=== PATIENT | male | born 1940 | race Caucasian/White ===

== ENCOUNTER 2020-08-01 16:21 | Inpatient (IN) | payer MEDICARE, OTHER ==
[2020-08-01] MEDS ORDERED: Sodium Chloride 0.9% 10 ML Syringe FLUSH PRN (16:50)
--- NOTE | 2020-08-01 17:27 | EDM.PDOC ---
<Marcio Ambrosio - Last Filed: 08/01/20 19:04> ED HPI GENERAL MEDICAL PROBLEM - General Chief Complaint: Abdominal Pain Stated Complaint: SENT FROM [place] Time Seen by Provider: 08/01/20 16:35 Source of Information: Reports: Patient, Family History Limitations: Reports: No Limitations - History of Present Illness INITIAL COMMENTS - FREE TEXT/NARRATIVE: The patient presents with upper abdominal pain. He says this started 1 hour after eating a BLT. He said this has happened before but the pain was more intense today. He got diaphoretic from the pain. He has no chest pain or shortness of breath. The pain was 8/10 but it went down to about a 5/10 after taking some tums and belching. He still has his gallbladder and appendix. He has no nausea or vomiting. He has no diarrhea or dysuria. He has no fever, chills or cough. He has coronary artery disease. He had an AR with stents in 2005. This all started at 1pm today. Onset: Sudden Duration: Hour(s): Location: Reports: Abdomen Quality: Reports: Sharp Severity: Moderate Improves with: Reports: None Worsens with: Reports: None Associated Symptoms: Reports: No Other Symptoms Upper Abdomen Pain Score (Numeric/FACES): 5 - Related Data Allergies Allergy/AdvReac Type Severity Reaction Status Date / Time No Known Allergies Allergy Verified 08/01/20 16:34 Home Meds: Home Meds Aspirin [Halfprin] 81 mg PO DAILY 08/01/20 [History] Clopidogrel Bisulfate [Clopidogrel] 75 mg PO DAILY 08/01/20 [History] Levothyroxine 75 mcg PO DAILY 08/01/20 [History] Losartan Potassium 50 mg PO DAILY 08/01/20 [History] Metoprolol Succinate [Toprol Xl] 25 mg PO DAILY 08/01/20 [History] Pantoprazole Sodium [Protonix] 20 mg PO DAILY 08/01/20 [History] Rosuvastatin Calcium 40 mg PO DAILY 08/01/20 [History] Past Medical History HEENT History: Reports: Cataract, Impaired Vision Other HEENT History: wears eyeglasses. Cardiovascular History: Reports: CAD, High Cholesterol, Hypertension, Stents Gastrointestinal History: Reports: GERD, Helicobacter Pylori Musculoskeletal History: Reports: Osteoarthritis Endocrine/Metabolic History: Reports: Hypothyroidism - Infectious Disease History Infectious Disease History: Reports: Chicken Pox, Measles, Mumps, Shingles - Past Surgical History HEENT Surgical History: Reports: Cataract Surgery Cardiovascular Surgical History: Reports: Coronary Artery Stent GI Surgical History: Reports: Colonoscopy, EGD Social & Family History - Tobacco Use Tobacco Use Status *Q: Never Tobacco User Second Hand Smoke Exposure: No - Caffeine Use Caffeine Use: Reports: Coffee - Recreational Drug Use Recreational Drug Use: No ED ROS GENERAL - Review of Systems Review Of Systems: See Below Constitutional: Reports: No Symptoms HEENT: Reports: No Symptoms Respiratory: Reports: No Symptoms Cardiovascular: Reports: No Symptoms Endocrine: Reports: No Symptoms GI/Abdominal: Reports: Abdominal Pain. Denies: Nausea, Vomiting : Reports: No Symptoms Musculoskeletal: Reports: No Symptoms ED EXAM, GI/ABD - Physical Exam Exam: See Below Exam Limited By: No Limitations General Appearance: Alert, No Apparent Distress Ears: Normal External Exam Nose: Normal Inspection Head: Atraumatic, Normocephalic Neck: Normal Inspection Respiratory/Chest: No Respiratory Distress, Lungs Clear, Normal Breath Sounds Cardiovascular: Regular Rate, Rhythm, No Edema, No Murmur GI/Abdominal Exam: Soft, No Organomegaly, No Mass, Tender (Moderate tenderness to the right upper abdomen) #1 Interpretation EKG Date: 08/01/20 Time: 16:34 Rhythm: NSR Rate (Beats/Min): 62 [place]: Normal P-Wave: Present QRS: Normal ST-T: Normal QT: Normal Course - Re-Assessments/Exams Free Text/Narrative Re-Assessment/Exam: 08/01/20 17:27 I ordered an IV saline lock, EKG, CXR, labs and an US of his gallbladder. 08/01/20 18:17 His EKG shows a NSR with no acute changes. His CXR looks good. His WBC was elevated at 12.98. His CMP is negative. His CK is normal at 140. His CKMB is normal at 2.6. His troponin is negative. His CRP is normal. His lipase is elevated at 22,435. 08/01/20 19:04 His US shows limited examination. A repeat study following more prolonged fasting could be considered for more optimal gallbladder assessment. The patient is feeling good. I would like to admit him to the hospital for pancreatitis and for a CT of his abdomen. 08/01/20 19:06 He did not want to be admitted but he did agree to the CT of his abdomen and pelvis. Departure - Departure Disposition: Admitted As Inpatient 68 Clinical Impression: Acute pancreatitis Qualifiers: Pancreatitis type: unspecified pancreatitis type Acute pancreatitis complication: no infection or necrosis Qualified Code(s): K85.90 - Acute pancreatitis without necrosis or infection, unspecified - Discharge Information Instructions: Acute Pancreatitis, Fiyr-ek-Info Referrals: Terell Gee MD [Primary Care Provider] - Forms: ED Department Discharge Sepsis Event Note (ED) - Evaluation Sepsis Screening Result: No Definite Risk <Mio Norman - Last Filed: 08/01/20 21:04> Course - Vital Signs Last Recorded V/S: Last Vital Signs Temp 36.3 C 08/01/20 16:25 Pulse 62 08/01/20 16:25 Resp 19 08/01/20 16:25 BP 179/60 H 08/01/20 16:25 Pulse Ox 100 08/01/20 16:25 - Orders/Labs/Meds Orders: Active Orders 24 hr Category Date Time Status Admission Status [Patient Status] [ADT] Routine ADT 08/01/20 20:43 Active Cardiac Monitoring [RC] . DIRECTED Care 08/01/20 16:50 Active EKG Documentation Completion [RC] STAT Care 08/01/20 16:51 Active Peripheral IV Care [RC] . DIRECTED Care 08/01/20 16:51 Active Abdomen Ltd [US] Stat Exams 08/01/20 16:52 Taken Abdomen Pelvis w Cont [CT] Stat Exams 08/01/20 18:47 Taken Chest 1V Frontal [CR] Stat Exams 08/01/20 16:51 Taken Dextrose 5%-0.9% NaCl with KCl [D5 NS with 20 mEq KCl] Med 08/01/20 20:45 Active 1,000 ml IV ASDIRECTED Sodium Chloride 0.9% [Saline Flush] Med 08/01/20 16:50 Active 10 ml FLUSH ASDIRECTED PRN Sodium Chloride 0.9% [Saline Flush] Med 08/01/20 19:45 Active 10 ml FLUSH BOLUS Peripheral IV Insertion Adult [OM.PC] Stat Oth 08/01/20 16:50 Ordered Medication Orders Potassium Chloride/Dextrose/Sod Cl (D5 Ns With 20 Meq Kcl) 1,000 mls @ 125 mls/hr IV ASDIRECTED DARLENE Sodium Chloride (Saline Flush) 10 ml FLUSH ASDIRECTED PRN PRN Reason: Keep Vein Open Last Admin: 08/01/20 16:55 Dose: 10 ml Documented by: MEGHA Sodium Chloride (Saline Flush) 10 ml FLUSH BOLUS DARLENE Last Admin: 08/01/20 19:45 Dose: 10 ml Documented by: MERRY Labs: Laboratory Tests 08/01/20 08/01/20 08/01/20 Range/Units 17:05 17:05 17:05 WBC 12.98 H (4.23-9.07) K/mm3 RBC 5.13 (4.63-6.08) M/mm3 Hgb 15.5 (13.7-17.5) gm/dl Hct 47.2 (40.1-51.0) % MCV 92.0 (79.0-92.2) fl MCH 30.2 (25.7-32.2) pg MCHC 32.8 (32.2-35.5) g/dl RDW Std Deviation 47.4 H (35.1-43.9) fL Plt Count 211 (163-337) K/mm3 MPV 9.9 (9.4-12.3) fl Neut % (Auto) 73.5 H (34.0-67.9) % Lymph % (Auto) 15.6 L (21.8-53.1) % Rush % (Auto) 10.0 (5.3-12.2) % Eos % (Auto) 0.5 L (0.8-7.0) Baso % (Auto) 0.2 (0.1-1.2) % Neut # (Auto) 9.54 H (1.78-5.38) K/mm3 Lymph # (Auto) 2.03 (1.32-3.57) K/mm3 Rush # (Auto) 1.30 H (0.30-0.82) K/mm3 Eos # (Auto) 0.06 (0.04-0.54) K/mm3 Baso # (Auto) 0.03 (0.01-0.08) K/mm3 Sodium 144 (136-145) mEq/L Potassium 4.4 (3.5-5.1) mEq/L Chloride 108 H (98-107) mEq/L Carbon Dioxide 29 (21-32) mEq/L Anion Gap 11.4 (5-15) BUN 20 H (7-18) mg/dL Creatinine 1.2 (0.7-1.3) mg/dL Est Cr Clr Drug Dosing 43.17 mL/min Estimated GFR (MDRD) 59 (>60) mL/min BUN/Creatinine Ratio 16.7 (14-18) Glucose 97 (83-115) mg/dL Calcium 9.0 (8.5-10.1) mg/dL Total Bilirubin 0.7 (0.2-1.0) mg/dL GGT 25 (15-85) U/L AST 24 (15-37) U/L ALT 34 (16-63) U/L Alkaline Phosphatase 68 (46-116) U/L Creatine Kinase 140 (39-308) U/L CK-MB (CK-2) 2.6 (0-3.6) ng/ml Troponin I < 0.017 (0.00-0.056) ng/mL C-Reactive Protein <0.2 (<1.0) mg/dL Total Protein 6.7 (6.4-8.2) g/dl Albumin 3.5 (3.4-5.0) g/dl Globulin 3.2 gm/dL Albumin/Globulin Ratio 1.1 (1-2) Lipase 98065 H (73-393) U/L Urine Color (Yellow) Urine Appearance (Clear) Urine pH (5.0-8.0) Ur Specific [place] (1.005-1.030) Urine Protein (Negative) Urine Glucose (UA) (Negative) Urine Ketones (Negative) Urine Occult Blood (Negative) Urine Nitrite (Negative) Urine Bilirubin (Negative) Urine Urobilinogen (0.2-1.0) Ur Leukocyte Esterase (Negative) Urine RBC (0-5) /hpf Urine WBC (0-5) /hpf Ur Squamous Epith Cells (0-5) /hpf Urine Bacteria (FEW) /hpf Urine Mucus (FEW) /hpf 08/01/20 Range/Units 19:55 WBC (4.23-9.07) K/mm3 RBC (4.63-6.08) M/mm3 Hgb (13.7-17.5) gm/dl Hct (40.1-51.0) % MCV (79.0-92.2) fl MCH (25.7-32.2) pg MCHC (32.2-35.5) g/dl RDW Std Deviation (35.1-43.9) fL Plt Count (163-337) K/mm3 MPV (9.4-12.3) fl Neut % (Auto) (34.0-67.9) % Lymph % (Auto) (21.8-53.1) % Rush % (Auto) (5.3-12.2) % Eos % (Auto) (0.8-7.0) Baso % (Auto) (0.1-1.2) % Neut # (Auto) (1.78-5.38) K/mm3 Lymph # (Auto) (1.32-3.57) K/mm3 Rush # (Auto) (0.30-0.82) K/mm3 Eos # (Auto) (0.04-0.54) K/mm3 Baso # (Auto) (0.01-0.08) K/mm3 Sodium (136-145) mEq/L Potassium (3.5-5.1) mEq/L Chloride (98-107) mEq/L Carbon Dioxide (21-32) mEq/L Anion Gap (5-15) BUN (7-18) mg/dL Creatinine (0.7-1.3) mg/dL Est Cr Clr Drug Dosing mL/min Estimated GFR (MDRD) (>60) mL/min BUN/Creatinine Ratio (14-18) Glucose (83-115) mg/dL Calcium (8.5-10.1) mg/dL Total Bilirubin (0.2-1.0) mg/dL GGT (15-85) U/L AST (15-37) U/L ALT (16-63) U/L Alkaline Phosphatase (46-116) U/L Creatine Kinase (39-308) U/L CK-MB (CK-2) (0-3.6) ng/ml Troponin I (0.00-0.056) ng/mL C-Reactive Protein (<1.0) mg/dL Total Protein (6.4-8.2) g/dl Albumin (3.4-5.0) g/dl Globulin gm/dL Albumin/Globulin Ratio (1-2) Lipase (73-393) U/L Urine Color Yellow (Yellow) Urine Appearance Clear (Clear) Urine pH 6.0 (5.0-8.0) Ur Specific [place] 1.020 (1.005-1.030) Urine Protein Negative (Negative) Urine Glucose (UA) Negative (Negative) Urine Ketones Negative (Negative) Urine Occult Blood Negative (Negative) Urine Nitrite Negative (Negative) Urine Bilirubin Negative (Negative) Urine Urobilinogen 0.2 (0.2-1.0) Ur Leukocyte Esterase Negative (Negative) Urine RBC 0-5 (0-5) /hpf Urine WBC 0-5 (0-5) /hpf Ur Squamous Epith Cells 0-5 (0-5) /hpf Urine Bacteria Few (FEW) /hpf Urine Mucus Not seen (FEW) /hpf Meds: Medications Generic Name Dose Route Start Last Admin Trade Name Freq PRN Reason Stop Dose Admin Potassium Chloride/Dextrose/Sod Cl 1,000 mls @ 125 mls/hr 08/01/20 20:45 D5 Ns With 20 Meq Kcl IV ASDIRECTED DARLENE Sodium Chloride 10 ml 08/01/20 16:50 08/01/20 16:55 Saline Flush FLUSH 10 ml ASDIRECTED PRN Administration Keep Vein Open Sodium Chloride 10 ml 08/01/20 19:45 08/01/20 19:45 Saline Flush FLUSH 10 ml BOLUS DARLENE Administration Discontinued Medications Generic Name Dose Route Start Last Admin Trade Name Freq PRN Reason Stop Dose Admin Clopidogrel Bisulfate 75 mg 08/01/20 20:41 Plavix PO 08/01/20 20:42 ONETIME ONE Iopamidol 100 ml 08/01/20 19:43 08/01/20 19:45 Isovue-300 (61%) IVPUSH 08/01/20 19:44 100 ml ONETIME ONE Administration Levothyroxine Sodium 75 mcg 08/01/20 20:42 Levothyroxine PO 08/01/20 20:43 ONETIME ONE Losartan Potassium 50 mg 08/01/20 20:41 Cozaar PO 08/01/20 20:42 ONETIME ONE Metoprolol Succinate 25 mg 08/01/20 20:41 Toprol Xl PO 08/01/20 20:42 ONETIME ONE - Re-Assessments/Exams Free Text/Narrative Re-Assessment/Exam: 08/01/20 19:29 care has been assumed from Dr. Ambrosio and as it is change of shift. The patient presents with diffuse recurrent upper abdominal pain and identified by labs to have an acute pancreatitis with an elevated lipase of 22,435. Patient does not wish to stay in the hospital. He however is agreed to having CT of the abdomen with IV contrast only so as not to obscure the pancreas with oral contrast to rule out a underlying cancer in the head of the pancreas. There is some suggestion that he has been having recurrent similar pain for several months. A GGT has also been ordered. On review of his med list medications Protonix and rosuvastatin have both been identified to cause potential pancreatitis 08/01/20 19:42 serum GGT is only 25 and therefore there is no laboratory signs of biliary tree obstruction. Dr. Ambrosio and has mentioned that he did speak with Dr. Terell Gee the patient's [id number] and I believe Dr. Liz in turn spoke to the patient and advised that he should probably be admitted to the hospital. 08/01/20 20:35 I have spoken to the patient at length about the results of his CT scan of the abdomen which shows evidence of acute pancreatitis with inflammatory change around particularily the head of the pancreas. No definitive mass in the head of the pancreas could be identified. The gallbladder is contracted and is does not show any evidence of obvious calcified stones. Both kidneys appear to be within normal limits. Adrenal glands are normal. Spleen appears to be normal. No retroperitoneal adenopathy noted. Diffuse atherosclerotic changes appreciated throughout the abdominal aorta without aneurysm development. He does have bilateral small fat-containing inguinal hernias. Prostate appears to be within normal limits. Urinary bladder appears to be normal. There is a large amount of stool throughout the colon. I would suggest he be placed on stool softeners or MiraLAX powder at least daily while in hospital. At present he does not want any pain medications. He is willing to come into the hospital for IV fluid management. I will speak with on-call hospitalist Dr. Mahajan in this regard. He has been on both his Protonix and rosuvastatin for greater than 2 years. It is unlikely that medication is causing his current symptom complex. Since it is so sporadic it still strongly suggest the gallbladder is the culprit and perhaps sludge is obstructing the common bile duct to cause acute pancreatitis. He is going to need MRI or ERCP once the pancreatic inflammation settles a bit to make sure there is no obstruction of the true pancreatic duct. 08/01/20 20:[address] with [address] Mahajan and he is willing to admit the patient to med surgery floor. Patient takes all of his medications at the same time in the evening other than rosuvastatin which he takes at bedtime. I therefore ordered Plavix 75 mg p.o. with levothyroxine 75 mcg p.o. with losartan 50 mg p.o. and metoprolol succinate 25 mg p.o. at this time. IV fluids will be D5 normal saline with 20 mEq of KCl per liter to run at 125 mils per hour. Departure - Departure Time of Disposition: 21:03 Condition: Fair - Discharge Information *PRESCRIPTION DRUG MONITORING PROGRAM REVIEWED*: Not Applicable *COPY OF PRESCRIPTION DRUG MONITORING REPORT IN PATIENT EHSAN: Not Applicable Sepsis Event Note (ED) - Focused Exam Vital Signs: Vital Signs Temp Pulse Resp BP Pulse Ox 08/01/20 16:25 36.3 C 62 19 179/60 H 100 - My Orders Last 24 Hours: My Active Orders 08/01/20 19:45 Sodium Chloride 0.9% [Saline Flush] 10 ml FLUSH BOLUS 08/01/20 20:43 Admission Status [Patient Status] [ADT] Routine 08/01/20 20:45 Dextrose 5%-0.9% NaCl with KCl [D5 NS with 20 mEq KCl] 1,000 ml IV ASDIRECTED - Assessment/Plan Last 24 Hours: My Active Orders 08/01/20 19:45 Sodium Chloride 0.9% [Saline Flush] 10 ml FLUSH BOLUS 08/01/20 20:43 Admission Status [Patient Status] [ADT] Routine 08/01/20 20:45 Dextrose 5%-0.9% NaCl with KCl [D5 NS with 20 mEq KCl] 1,000 ml IV ASDIRECTED
[2020-08-01] MEDS ORDERED: Iopamidol 612 MG/ML 100 ML Bottle IVPUSH ONE (19:43)
[2020-08-01] MEDS ORDERED: Sodium Chloride 0.9% 10 ML Syringe FLUSH SCH (19:45)
[2020-08-01] MEDS ORDERED: Clopidogrel 75 MG Tab PO ONE (20:41)
[2020-08-01] MEDS ORDERED: Metoprolol Succinate 25 MG Tab.ER PO ONE (20:41)
[2020-08-01] MEDS ORDERED: Losartan 50 MG Tab PO ONE (20:41)
[2020-08-01] MEDS ORDERED: Levothyroxine 75 MCG Tab PO ONE (20:42)
[2020-08-01] MEDS: Dextrose 5%-0.9% NaCl with KCl 1,000 ML IV SCH (21:19)
[2020-08-02] MEDS ORDERED: HYDROmorphone 0.5 MG/0.5 ML Syringe IVPUSH PRN (00:15)
[2020-08-02] MEDS ORDERED: Metoclopramide 10 MG/2 ML SDV IVPUSH PRN (00:16)
[2020-08-02] MEDS ORDERED: Acetaminophen 325 MG Tab PO PRN (00:19)
[2020-08-02] MEDS: Dextrose 5%-0.9% NaCl with KCl 1,000 ML IV SCH ×2 (04:20→13:14)
--- NOTE | 2020-08-02 07:21 | PCM.HP.2 ---
H&P History of Present Illness - General Date of Service: 08/02/20 Admit Problem/Dx: Admission Diagnosis/Problem Admission Diagnosis/Problem Pancreatitis Source of Information: Patient, Provider, RN, RN Notes Reviewed History Limitations: Reports: No Limitations - History of Present Illness Initial Comments - Free Text/Narative: This is a 79-year-old male who presents to ED on 08/01/2020 after being seen at [facility]. His upper quadrant abdominal pain which she reports started about 1 hour after eating a BLT, around 1300. Reports he has been having pain for some time but it is worse today and causing him to be diaphoretic. Denies any chest pain or shortness of breath. Reports pain is 8 out of 10 but improved to 5 out of 10 after taking some Tums and belching. No prior cholecystectomy or appendectomy. Denies any nausea, vomiting, diarrhea, dysuria, fever, chills, cough. Reports a history of CAD with an [place] resulting in stent placement in 2005. In the ED temp is 36.3 Celsius. Pulse 62. Respirations 19. Blood pressure 170/60. Pulse ox 100% on room air. Twelve-lead EKG is obtained showing a sinus rhythm at 62 bpm with no signs of ectopy or ischemia. CXR is obtained showing no acute changes. Labs are obtained showing a WBC that is elevated at 12.98. Hemoglobin 15.5. Hematocrit 47.2. Platelets 211,000. Neutrophils are elevated at 9.54. Sodium 144. Potassium 4.4. Chloride 108. Carbon oxide 29. Anion gap 11.4. BUN is elevated at 20. Creatinine 1.2. GFR is 59. Glucose 97. Calcium 9.0. Bilirubin 0.7. GGT is 25. AST is 24, ALT 34, alkaline phosphatase 68. CK is 140. CK-MB is 2.6. Troponin is less than 0.017. CRP is less than 0.2. Protein is 6.7. Albumin 3.5[place] [address]. UA is obtained and is normal. Abdominal ultrasound is obtained interpreted [facility] as "1. Limited examination. 2. A repeat study following more prolonged fasting could be considered for more optimal gallbladder assessment. 3. Alternatively consider evaluation with additional exam such as CT or MRI." Patient is initially adamant about not staying in the hospital but agrees to a CT scan of the abdomen and pelvis. CT scan is interpreted by [facility] as "1. Findings suggest moderately severe acute pancreatitis. Correlate with laboratory data. 2. Mucosal thickening in the distal stomach and duodenum is likely related to pancr eatitis as opposed to primary gastric duodenitis. Clinical assessment suggested. 3. There is fluid in a moderate to large hiatal hernia sac, this likely has tracked superiorly from the pancreatic region. 4. Subcentimeter low- density focus in the right kidney statistically reflects a benign cyst. No follow-up was recommended." He is made n.p.o. and started on IV fluids. Home medications are ordered by the ED provider. He carries a history of CAD, HLD, hypertension, [place] with stents placed in 2005, GERD, H. pylori, osteoarthritis, hypothyroidism. He was never a smoker. His PCP is Dr. Gee. He is subsequently admitted to the ICU as MedSurg overflow for treatment and further work-up of his acute pancreatitis. Upper Abdomen Pain Score (Numeric/FACES): 4 - Related Data Allergies/Adverse Reactions: Allergies Allergy/AdvReac Type Severity Reaction Status Date / Time No Known Allergies Allergy Verified 08/01/20 23:09 Home Medications: Home Meds Aspirin [Halfprin] 81 mg PO DAILY 08/01/20 [History] Clopidogrel Bisulfate [Clopidogrel] 75 mg PO DAILY 08/01/20 [History] Levothyroxine 75 mcg PO DAILY 08/01/20 [History] Losartan Potassium 50 mg PO DAILY 08/01/20 [History] Metoprolol Succinate [Toprol Xl] 25 mg PO DAILY 08/01/20 [History] Multivitamin 1 tab PO DAILY 08/01/20 [History] Pantoprazole Sodium [Protonix] 20 mg PO DAILY 08/01/20 [History] Rosuvastatin Calcium 40 mg PO DAILY 08/01/20 [History] Past Medical History HEENT History: Reports: Cataract, Impaired Vision Other HEENT History: wears eyeglasses. Cardiovascular History: Reports: CAD, High Cholesterol, Hypertension, Stents Gastrointestinal History: Reports: GERD, Helicobacter Pylori Musculoskeletal History: Reports: Osteoarthritis Endocrine/Metabolic History: Reports: Hypothyroidism - Infectious Disease History Infectious Disease History: Reports: Chicken Pox, Measles, Mumps, Shingles - Past Surgical History HEENT Surgical History: Reports: Cataract Surgery Cardiovascular Surgical History: Reports: Coronary Artery Stent GI Surgical History: Reports: Colonoscopy, EGD Social & Family History - Family History Cardiac: Reports: CAD, [place] GI: Reports: GERD Musculoskeletal: Reports: Osteoarthritis Oncologic: Reports: Skin - Tobacco Use Tobacco Use Status *Q: Never Tobacco User Second Hand Smoke Exposure: No - Caffeine Use Caffeine Use: Reports: Coffee Caffeine Use Comment: 1 cup of coffee everyday - Recreational Drug Use Recreational Drug Use: No H&P Review of Systems - Review of Systems: Review Of Systems: See Below General: Reports: No Symptoms. Denies: Fever, Chills, Malaise, Weakness, Fatigue HEENT: Reports: No Symptoms. Denies: Headaches, Sore Throat Pulmonary: Reports: No Symptoms. Denies: Shortness of Breath, Wheezing, Pleuritic Chest Pain, Cough, Hemoptysis Cardiovascular: Reports: No Symptoms. Denies: Chest Pain, Palpitations, Edema Gastrointestinal: Reports: Abdominal Pain (epigastric to RUQ - improved ). Denies: Constipation, Diarrhea, Nausea, Vomiting Genitourinary: Reports: No Symptoms. Denies: Pain Musculoskeletal: Reports: No Symptoms Skin: Reports: No Symptoms. Denies: Cyanosis Psychiatric: Reports: No Symptoms. Denies: Confusion Neurological: Reports: No Symptoms. Denies: Pre-Existing Deficit, Trouble Speaking, Difficulty Walking, Weakness, Gait Disturbance Hematologic/Lymphatic: Reports: No Symptoms Immunologic: Reports: No Symptoms Exam - Exam Exam: See Below - Vital Signs Vital Signs: Last Vital Signs Temp 97.5 F 08/02/20 04:00 Pulse 75 08/02/20 04:00 Resp 16 08/02/20 04:00 BP 134/79 08/02/20 04:00 Pulse Ox 95 08/02/20 04:00 Weight: 178 lb 6.4 oz - Exam Quality Assessment: DVT Prophylaxis General: Alert, Oriented, Cooperative. No: Mild Distress HEENT: Conjunctiva Clear, EACs Clear, Mucosa Moist & [place], Posterior Pharynx Cl ear Neck: Supple, Trachea Midline Lungs: Clear to Auscultation, Normal Respiratory Effort Cardiovascular: Regular Rate, Regular Rhythm GI/Abdominal Exam: Normal Bowel Sounds, Soft, Tender (Epigastric to RUQ - improved ) (Male) Exam: Deferred Rectal (Males) Exam: Deferred Back Exam: Normal Inspection, Full Range of Motion Extremities: Normal Inspection, Normal Range of Motion, Non-Tender, No Pedal Edema, Normal Capillary Refill Skin: Warm, Dry, Intact Neurological: Cranial Nerves Intact (Grossly ) Neuro Extensive - Mental Status: Alert, Oriented x3, Normal Mood/Affect - Patient Data Lab Results Last 24 hrs: Laboratory Results - last 24 hr 08/01/20 08/01/20 08/01/20 Range/Units 17:05 17:05 17:05 WBC 12.98 H (4.23-9.07) K/mm3 RBC 5.13 (4.63-6.08) M/mm3 Hgb 15.5 (13.7-17.5) gm/dl Hct 47.2 (40.1-51.0) % MCV 92.0 (79.0-92.2) fl MCH 30.2 (25.7-32.2) pg MCHC 32.8 (32.2-35.5) g/dl RDW Std Deviation 47.4 H (35.1-43.9) fL Plt Count 211 (163-337) K/mm3 MPV 9.9 (9.4-12.3) fl Neut % (Auto) 73.5 H (34.0-67.9) % Lymph % (Auto) 15.6 L (21.8-53.1) % [place] % (Auto) 10.0 (5.3-12.2) % Eos % (Auto) 0.5 L (0.8-7.0) Baso % (Auto) 0.2 (0.1-1.2) % Neut # (Auto) 9.54 H (1.78-5.38) K/mm3 Lymph # (Auto) 2.03 (1.32-3.57) K/mm3 [place] # (Auto) 1.30 H (0.30-0.82) K/mm3 Eos # (Auto) 0.06 (0.04-0.54) K/mm3 Baso # (Auto) 0.03 (0.01-0.08) K/mm3 Sodium 144 (136-145) mEq/L Potassium 4.4 (3.5-5.1) mEq/L Chloride 108 H (98-107) mEq/L Carbon Dioxide 29 (21-32) mEq/L Anion Gap 11.4 (5-15) BUN 20 H (7-18) mg/dL Creatinine 1.2 (0.7-1.3) mg/dL Est Cr Clr Drug Dosing 43.17 mL/min Estimated GFR (MDRD) 59 (>60) mL/min BUN/Creatinine Ratio 16.7 (14-18) Glucose 97 (83-115) mg/dL Calcium 9.0 (8.5-10.1) mg/dL Total Bilirubin 0.7 (0.2-1.0) mg/dL GGT 25 (15-85) U/L AST 24 (15-37) U/L ALT 34 (16-63) U/L Alkaline Phosphatase 68 (46-116) U/L Creatine Kinase 140 (39-308) U/L CK-MB (CK-2) 2.6 (0-3.6) ng/ml Troponin I < 0.017 (0.00-0.056) ng/mL C-Reactive Protein <0.2 (<1.0) mg/dL Total Protein 6.7 (6.4-8.2) g/dl Albumin 3.5 (3.4-5.0) g/dl Globulin 3.2 gm/dL Albumin/Globulin Ratio 1.1 (1-2) Lipase 82713 H (73-393) U/L Urine Color (Yellow) Urine Appearance (Clear) Urine pH (5.0-8.0) Ur Specific [place] (1.005-1.030) Urine Protein (Negative) Urine Glucose (UA) (Negative) Urine Ketones (Negative) Urine Occult Blood (Negative) Urine Nitrite (Negative) Urine Bilirubin (Negative) Urine Urobilinogen (0.2-1.0) Ur Leukocyte Esterase (Negative) Urine RBC (0-5) /hpf Urine WBC (0-5) /hpf Ur Squamous Epith Cells (0-5) /hpf Urine Bacteria (FEW) /hpf Urine Mucus (FEW) /hpf SARS-CoV-2 RNA (AGUS) (NEGATIVE) 08/01/20 08/01/20 Range/Units 19:55 21:25 WBC (4.23-9.07) K/mm3 RBC (4.63-6.08) M/mm3 Hgb (13.7-17.5) gm/dl Hct (40.1-51.0) % MCV (79.0-92.2) fl MCH (25.7-32.2) pg MCHC (32.2-35.5) g/dl RDW Std Deviation (35.1-43.9) fL Plt Count (163-337) K/mm3 MPV (9.4-12.3) fl Neut % (Auto) (34.0-67.9) % Lymph % (Auto) (21.8-53.1) % [place] % (Auto) (5.3-12.2) % Eos % (Auto) (0.8-7.0) Baso % (Auto) (0.1-1.2) % Neut # (Auto) (1.78-5.38) K/mm3 Lymph # (Auto) (1.32-3.57) K/mm3 [place] # (Auto) (0.30-0.82) K/mm3 Eos # (Auto) (0.04-0.54) K/mm3 Baso # (Auto) (0.01-0.08) K/mm3 Sodium (136-145) mEq/L Potassium (3.5-5.1) mEq/L Chloride (98-107) mEq/L Carbon Dioxide (21-32) mEq/L Anion Gap (5-15) BUN (7-18) mg/dL Creatinine (0.7-1.3) mg/dL Est Cr Clr Drug Dosing mL/min Estimated GFR (MDRD) (>60) mL/min BUN/Creatinine Ratio (14-18) Glucose (83-115) mg/dL Calcium (8.5-10.1) mg/dL Total Bilirubin (0.2-1.0) mg/dL GGT (15-85) U/L AST (15-37) U/L ALT (16-63) U/L Alkaline Phosphatase (46-116) U/L Creatine Kinase (39-308) U/L CK-MB (CK-2) (0-3.6) ng/ml Troponin I (0.00-0.056) ng/mL C-Reactive Protein (<1.0) mg/dL Total Protein (6.4-8.2) g/dl Albumin (3.4-5.0) g/dl Globulin gm/dL Albumin/Globulin Ratio (1-2) Lipase (73-393) U/L Urine Color Yellow (Yellow) Urine Appearance Clear (Clear) Urine pH 6.0 (5.0-8.0) Ur Specific [place] 1.020 (1.005-1.030) Urine Protein Negative (Negative) Urine Glucose (UA) Negative (Negative) Urine Ketones Negative (Negative) Urine Occult Blood Negative (Negative) Urine Nitrite Negative (Negative) Urine Bilirubin Negative (Negative) Urine Urobilinogen 0.2 (0.2-1.0) Ur Leukocyte Esterase Negative (Negative) Urine RBC 0-5 (0-5) /hpf Urine WBC 0-5 (0-5) /hpf Ur Squamous Epith Cells 0-5 (0-5) /hpf Urine Bacteria Few (FEW) /hpf Urine Mucus Not seen (FEW) /hpf SARS-CoV-2 RNA (AGUS) Negative (NEGATIVE) Result Diagrams: 08/02/20 08:23 08/02/20 08:23 Sepsis Event Note - Evaluation Sepsis Screening Result: No Definite Risk - Focused Exam Vital Signs: Vital Signs Temp Pulse Pulse Resp BP BP Pulse Ox 08/02/20 04:00 97.5 F 75 16 134/79 95 08/01/20 23:12 98.0 F 67 18 155/72 H 98 08/01/20 21:18 71 157/71 H 08/01/20 21:16 157/71 H 08/01/20 21:10 71 18 157/71 H 93 L - Problem List (1) History of [place] (myocardial infarction) SNOMED Code(s): 293770705 ICD Code: I25.2 - OLD MYOCARDIAL INFARCTION Status: Chronic Priority: Low Current Visit: No (2) CAD (coronary artery disease) SNOMED Code(s): 24770859 ICD Code: I25.10 - ATHSCL HEART DISEASE OF [place] CORONARY ARTERY W/O ANG PCT RS Status: Chronic Priority: Medium Current Visit: No Qualifiers: Coronary Disease-Associated Artery/Lesion type: tribe artery [place] vs. transplanted heart: tribe heart Associated angina: angina presence unspecified Qualified Code(s): I25.10 - Atherosclerotic heart disease of tribe coronary artery without angina pectoris (3) HLD (hyperlipidemia) SNOMED Code(s): 86959540 ICD Code: E78.5 - HYPERLIPIDEMIA, UNSPECIFIED Status: Chronic Priority: Low Current Visit: No Qualifiers: Hyperlipidemia type: unspecified Qualified Code(s): E78.5 - Hyperlipidemia, unspecified (4) HTN (hypertension) SNOMED Code(s): 81758236 ICD Code: I10 - ESSENTIAL (PRIMARY) HYPERTENSION Status: Chronic Priority: Medium Current Visit: No Qualifiers: Hypertension type: unspecified Qualified Code(s): I10 - Essential (primary) hypertension (5) GERD (gastroesophageal reflux disease) SNOMED Code(s): 927388483 ICD Code: K21.9 - GASTRO-ESOPHAGEAL REFLUX DISEASE WITHOUT ESOPHAGITIS Status: Chronic Priority: Medium Current Visit: No Qualifiers: Esophagitis presence: esophagitis presence not specified Qualified Code(s): K21.9 - Gastro-esophageal reflux disease without esophagitis (6) History of Helicobacter pylori infection SNOMED Code(s): 19988337469420269 ICD Code: Z86.19 - PERSONAL HISTORY OF OTHER INFECTIOUS AND PARASITIC DISEASES Status: Chronic Priority: Low Current Visit: No (7) Osteoarthritis SNOMED Code(s): 151930124 ICD Code: M19.90 - UNSPECIFIED OSTEOARTHRITIS, UNSPECIFIED SITE Status: Chronic Priority: Low Current Visit: No Qualifiers: Osteoarthritis location: unspecified site Osteoarthritis type: unspecified Qualified Code(s): M19.90 - Unspecified osteoarthritis, unspecified site (8) Hypothyroidism SNOMED Code(s): 38688310 ICD Code: E03.9 - HYPOTHYROIDISM, UNSPECIFIED Status: Chronic Priority: Low Current Visit: No Qualifiers: Hypothyroidism type: unspecified Qualified Code(s): E03.9 - Hypothyroidism, unspecified (9) Acute pancreatitis SNOMED Code(s): 732207926 ICD Code: K85.90 - ACUTE PANCREATITIS WITHOUT NECROSIS OR INFECTION, UNSP Status: Acute Priority: High Current Visit: Yes Qualifiers: Pancreatitis type: unspecified pancreatitis type Acute pancreatitis complication: no infection or necrosis Qualified Code(s): K85.90 - Acute pancreatitis without necrosis or infection, unspecified Problem List Initiated/Reviewed/Updated: Yes Orders Last 24hrs: Active Orders 24 hr Category Date Time Status Admission Status [Patient Status] [ADT] Routine ADT 08/01/20 20:43 Active Up ad Jayne [RC] ASDIRECTED Care 08/02/20 00:26 Active Nothing Per Oral Diet [DIET] Diet 08/02/20 Breakfast Active Abdomen Ltd [US] Stat Exams 08/01/20 16:52 Taken Abdomen Pelvis w Cont [CT] Stat Exams 08/01/20 18:47 Taken Chest 1V Frontal [CR] Stat Exams 08/01/20 16:51 Taken Acetaminophen [TylenoL] Med 08/02/20 00:19 Active 650 mg PO Q4H PRN Dextrose 5%-0.9% NaCl with KCl [D5 NS with 20 mEq KCl] Med 08/01/20 20:45 Active 1,000 ml IV ASDIRECTED HYDROmorphone [Dilaudid] Med 08/02/20 00:15 Active 0.5 mg IVPUSH Q2H PRN Metoclopramide [Reglan] Med 08/02/20 00:16 Active 7.5 mg IVPUSH Q6H PRN Sodium Chloride 0.9% [Saline Flush] Med 08/01/20 16:50 Active 10 ml FLUSH ASDIRECTED PRN Sodium Chloride 0.9% [Saline Flush] Med 08/01/20 19:45 Active 10 ml FLUSH BOLUS Peripheral IV Insertion Adult [OM.PC] Stat Oth 08/01/20 16:50 Ordered Code Status [Resuscitation Status] Routine Resus Stat 08/02/20 00:28 Ordered Medication Orders Acetaminophen (Tylenol) 650 mg PO Q4H PRN PRN Reason: Pain Hydromorphone HCl (Dilaudid) 0.5 mg IVPUSH Q2H PRN PRN Reason: Abdominal Pain Potassium Chloride/Dextrose/Sod Cl (D5 Ns With 20 Meq Kcl) 1,000 mls @ 125 mls/hr IV ASDIRECTED [facility] Last Admin: 08/02/20 04:20 Dose: 125 mls/hr Documented by: [id number] Infusion: 08/02/20 04:20 Dose: 125 mls/hr Documented by: [id number] Admin: 08/01/20 21:19 Dose: 125 mls/hr Documented by: MOE Metoclopramide HCl (Reglan) 7.5 mg IVPUSH Q6H PRN PRN Reason: Nausea Sodium Chloride (Saline Flush) 10 ml FLUSH ASDIRECTED PRN PRN Reason: Keep Vein Open Last Admin: 08/01/20 16:55 Dose: 10 ml Documented by: MEGHA Sodium Chloride (Saline Flush) 10 ml FLUSH BOLUS [facility] Last Admin: 08/01/20 19:45 Dose: 10 ml Documented by: ROBLJON Assessment/Plan Comment:: Assessment - day of admission -08/02/20 (admitted evening of 08/01/20) * 79 yo male presents to ED from [place] with abdominal pain * Denies fever, nausea, vomiting, diarrhea, chest pain, urinary symptoms * Hx/o CAD, [place] with stents in 2005, HLD, HTN, GERD, H. Pylori, Osteoarthritis, Hypothyroidism * 12-lead EKG in ED shows NSR at 62 BPM with no signs of ischemia * CXR in ED shows nothing acute * Ab US: Limited study. Consider repeat study with more prolonged fasting vs. CT/MR to assess gallbladder * Ab CT: * 1. Moderately severe acute pancreatitis * 2. Thickening the distal stomach and duodenum is likely related to pancreatitis as opposed to primary gastric duodenitis * 3. There is fluid in a moderately large hiatal hernia sac, this likely has tracked superiorly from the pancreatic region. * 4. Subcentimeter low-density focus in the right kidney statistically reflects a benign cyst. No follow-up is recommended. * Labs: * WBC 12.98 * Hemoglobin 15.5 * Platelet 211 * Neutrophils 9.54 * Sodium 144 * Potassium 4.4 * Chloride 108 * Carbon oxide 29 * Anion gap 11.4 * BUN 20, creatinine 1.2, GFR 59 * Glucose 97 * Total bilirubin 0.7 * GGT 25 * AST 24, ALT 34, alkaline phosphatase 68 * Creatinine kinase 140 * CK-MB 2.6, troponin less than 0.017 * CRP less than 0.2 * Albumin 3.5 * Lipase 56841 * UA negative * SARS-CoV-2 RNA negative * Made n.p.o. status, given home medications, and started on IV fluids in the ED. * Admitted to ICU as MedSurg overflow for treatment and further workup of acute pancreatitis PLAN: Acute pancreatitis * NPO * IV fluids as ordered * Check triglycerides * MRCP ordered today * Ambulate * Social Media Sr Strategy Manager consultation * Daily labs * PRN Pain medications as ordered * PRN Antiemetics as directed History of [place] (myocardial infarction) CAD (coronary artery disease) HLD (hyperlipidemia) HTN (hypertension) GERD (gastroesophageal reflux disease) History of Helicobacter pylori infection Osteoarthritis Hypothyroidism * Home medications as ordered Code status: Full Code PCP: Dr. Gee DVT prophylaxis: Home Plavix, ASA, and MIKE hose Social: Disposition: Admit to ICU as MedSurg overflow for treatment and further work-up of acute pancreatitis. - Mortality Measure Prognosis:: Good
[2020-08-02] MEDS ORDERED: Ondansetron 4 MG/2 ML SDV IV PRN (07:36)
[2020-08-02] MEDS: Aspirin 81 MG Tab.EC PO SCH ×2 (08:21→17:06)
[2020-08-02] MEDS: Clopidogrel 75 MG Tab PO SCH ×2 (08:21→17:07)
[2020-08-02] MEDS: Levothyroxine 75 MCG Tab PO SCH ×2 (08:22→08:58)
[2020-08-02] MEDS ORDERED: Docusate Sodium 100 MG Cap PO PRN (08:25)
[2020-08-02] MEDS ORDERED: Losartan 50 MG Tab PO SCH ×2 (09:00→18:00)
[2020-08-02] MEDS ORDERED: Metoprolol Succinate 25 MG Tab.ER PO SCH ×2 (09:00→18:00)
[2020-08-02] MEDS ORDERED: Multivitamins with Minerals/Folic Acid/Lutein/Zeaxanth Tab PO SCH ×2 (09:00→18:00)
--- NOTE | 2020-08-02 10:07 | CR ---
Chest: Portable view of the chest was obtained. Comparison: No prior chest imaging is available. Heart size and mediastinum are normal. Lungs are clear with no acute parenchymal change. Previous left shoulder surgery is noted. No acute osseous finding is definitely appreciated. Impression: 1. Nothing acute is appreciated on portable chest x-ray. Diagnostic code #2
--- NOTE | 2020-08-02 10:07 | US ---
Limited abdominal ultrasound: Multiple real-time images were obtained of the upper right abdomen. Comparison: No prior abdominal study is available. Pancreas is not optimally seen. Visualized portions of the pancreas are within normal limits. Liver shows no focal parenchymal abnormality. Right kidney shows no hydronephrosis or mass and has a length of 10.8 cm. Gallbladder is not optimally distended as patient was not adequately fasting. Gallbladder wall is thickened which is felt to be due to lack of distention. No gross cholelithiasis is seen. No biliary duct dilatation is seen. Portal vein shows normal hepatopedal flow. Impression: 1. No gross abnormality is appreciated on limited right upper quadrant abdominal ultrasound. 2. Gallbladder not optimally seen. Diagnostic code #2 I agree with preliminary report from 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
--- NOTE | 2020-08-02 10:34 | CT ---
CT abdomen and pelvis Technique: Multiple axial sections were obtained from above the dome of the diaphragm inferiorly through the pubic symphysis. Intravenous and oral contrast was utilized. Comparison: Previous abdominal ultrasound study performed earlier on the same day (5:29 PM). Findings: Visualized lung bases show nothing. Liver contains no focal parenchymal abnormality. Small calcification is seen within the left lobe which is believed to be due to incidental granuloma. Hernia into the mediaatinum is noted which contains a focal area of fluid which measures about 3.1 cm. This most likely is from subsequently described pancreatitis. Adrenal glands show no nodule. Mild mucosal thickening is seen within portions of the duodenum and stomach antrum which are most likely due to below described pancreatitis. Gallbladder is collapsed and shows no calcifications. Diffuse inflammatory change is seen around the pancreas. No focal parenchymal abnormalities are noted within the pancreas. Kidneys show symmetric contrast enhancement. Right kidney shows several small low density findings which are nonspecific but most likely represent small cysts. Aorta shows atherosclerotic change without aneurysm. No retroperitoneal adenopathy is seen. No mesenteric abnormalities are seen. No pelvic mass or adenopathy is identified. Minimal fat-containing bilateral partial inguinal hernias are noted. Bone window settings were reviewed which show scattered degenerative change within the spine. No definite acute osseous finding is appreciated. Impression: 1. Findings suspicious for pancreatitis. Small amount of fluid extends through a hernia into the mediastinum believed to represent fluid from the pancreatitis. 2. Thickening of the antrum and duodenum most likely related to the pancreatitis. 3. Other findings believed to be incidental as noted above. 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
--- NOTE | 2020-08-02 12:16 | MR ---
MRI abdomen Technique: Various axial and coronal images were obtained. MRCP was also performed. Findings: CHD and CBD appear normal in size. The distal CBD is not seen at its connection to the duodenum which most likely relates to the pancreatitis. Pancreatic duct is seen and appears to be normal in size. Kidneys show no focal abnormality. Abdominal aorta shows no aneurysm. Edema is noted around the pancreas compatible with pancreatitis. Gallbladder shows no abnormality. No focal abnormality is appreciated within the liver. There is a small amount of fluid being seen around the liver as well as very minimal pleural effusions. Fluid collection is seen within a hernia into the posterior mediastinum which may relate to fluid from the pancreatitis. Impression: 1. Normal sized biliary ducts as noted above. 2. Findings of pancreatitis. 3. Minimal edema around the liver. Diagnostic code #3
[2020-08-02] MEDS ORDERED: Levothyroxine 75 MCG Tab PO SCH (18:00)
[2020-08-03] MEDS: Dextrose 5%-0.9% NaCl with KCl 1,000 ML IV SCH (04:03)
--- NOTE | 2020-08-03 11:58 | PCM.DCSUM1 ---
Discharge Summary - Hospital Course HPI Initial Comments: This is a 79-year-old male who presents to ED on 08/01/2020 after being seen at [facility]. His upper quadrant abdominal pain which she reports started about 1 hour after eating a BLT, around 1300. Reports he has been having pain for some time but it is worse today and causing him to be diaphoretic. Denies any chest pain or shortness of breath. Reports pain is 8 out of 10 but improved to 5 out of 10 after taking some Tums and belching. No prior cholecystectomy or appendectomy. Denies any nausea, vomiting, diarrhea, dysuria, fever, chills, cough. Reports a history of CAD with an MO resulting in stent placement in 2005. In the ED temp is 36.3 Celsius. Pulse 62. Respirations 19. Blood pressure 170/60. Pulse ox 100% on room air. Twelve-lead EKG is obtained showing a sinus rhythm at 62 bpm with no signs of ectopy or ischemia. CXR is obtained showing no acute changes. Labs are obtained showing a WBC that is elevated at 12.98. Hemoglobin 15.5. Hematocrit 47.2. Platelets 211,000. Neutrophils are elevated at 9.54. Sodium 144. Potassium 4.4. Chloride 108. Carbon oxide 29. Anion gap 11.4. BUN is elevated at 20. Creatinine 1.2. GFR is 59. Glucose 97. Calcium 9.0. Bilirubin 0.7. GGT is 25. AST is 24, ALT 34, alkaline p hosphatase 68. CK is 140. CK-MB is 2.6. Troponin is less than 0.017. CRP is less than 0.2. Protein is 6.7. Albumin 3.5[place] [address]. UA is obtained and is normal. Abdominal ultrasound is obtained interpreted [facility] as "1. Limited examination. 2. A repeat study following more prolonged fasting could be considered for more optimal gallbladder assessment. 3. Alternatively c onsider evaluation with additional exam such as CT or MRI." Patient is initially adamant about not staying in the hospital but agrees to a CT scan of the abdomen and pelvis. CT scan is interpreted by [facility] as "1. Findings suggest moderately severe acute pancreatitis. Correlate with laboratory data. 2. Mucosal thickening in the distal stomach and duodenum is likely related to pancreatitis as opposed to primary gastric duodenitis. Clinical assessment suggested. 3. There is fluid in a moderate to large hiatal hernia sac, this likely has tracked superiorly from the pancreatic region. 4. Subcentimeter low-density focus in the right kidney statistically reflects a benign cyst. No follow-up was recommended." He is made n.p.o. and started on IV fluids. Home medications are ordered by the ED provider. He carries a history of CAD, HLD, hypertension, MO with stents placed in 2005, GERD, H. pylori, osteoarthritis, hypothyroidism. He was never a smoker. His PCP is Dr. Gee. He is subsequently admitted to the ICU as MedSurg overflow for treatment and further work-up of his acute pancreatitis. Diagnosis: Stroke: No - Discharge Data Discharge Date: 08/03/20 (Admit date: 08/01/20) Discharge Disposition: Home, Self-Care 01 Condition: Good - Referral to Home Health Primary Care Physician: Terell Gee MD - Discharge Diagnosis/Problem(s) (1) History of MO (myocardial infarction) SNOMED Code(s): 106594877 ICD Code: I25.2 - OLD MYOCARDIAL INFARCTION Status: Chronic Priority: Low Current Visit: No (2) CAD (coronary artery disease) SNOMED Code(s): 44775813 ICD Code: I25.10 - ATHSCL HEART DISEASE OF [place] CORONARY ARTERY W/O ANG PCTRS Status: Chronic Priority: Medium Current Visit: No Qualifiers: Coronary Disease-Associated Artery/Lesion type: [place] artery [place] vs. transplanted heart: [place] heart Associated angina: angina presence unspecified Qualified Code(s): I25.10 - Atherosclerotic heart disease of [place] coronary artery without angina pectoris (3) HLD (hyperlipidemia) SNOMED Code(s): 60879488 ICD Code: E78.5 - HYPERLIPIDEMIA, UNSPECIFIED Status: Chronic Priority: Low Current Visit: No Qualifiers: Hyperlipidemia type: unspecified Qualified Code(s): E78.5 - Hyperlipidemia, unspecified (4) HTN (hypertension) SNOMED Code(s): 18386163 ICD Code: I10 - ESSENTIAL (PRIMARY) HYPERTENSION Status: Chronic Priority: Medium Current Visit: No Qualifiers: Hypertension type: unspecified Qualified Code(s): I10 - Essential (primary) hypertension (5) GERD (gastroesophageal reflux disease) SNOMED Code(s): 175444502 ICD Code: K21.9 - GASTRO-ESOPHAGEAL REFLUX DISEASE WITHOUT ESOPHAGITIS Status: Chronic Priority: Medium Current Visit: No Qualifiers: Esophagitis presence: esophagitis presence not specified Qualified Code(s): K21.9 - Gastro-esophageal reflux disease without esophagitis (6) History of Helicobacter pylori infection SNOMED Code(s): 95053083072964917 ICD Code: Z86.19 - PERSONAL HISTORY OF OTHER INFECTIOUS AND PARASITIC DISEASES Status: Chronic Priority: Low Current Visit: No (7) Osteoarthritis SNOMED Code(s): 855533383 ICD Code: M19.90 - UNSPECIFIED OSTEOARTHRITIS, UNSPECIFIED SITE Status: [place] Priority: Low Current Visit: No Qualifiers: Osteoarthritis location: unspecified site Osteoarthritis type: unspecified Qualified Code(s): M19.90 - Unspecified osteoarthritis, unspecified site (8) Hypothyroidism SNOMED Code(s): 25913185 ICD Code: E03.9 - HYPOTHYROIDISM, UNSPECIFIED Status: Chronic Priority: Low Current Visit: No Qualifiers: Hypothyroidism type: unspecified Qualified Code(s): E03.9 - Hypothyroidism, unspecified (9) Acute pancreatitis SNOMED Code(s): 917724544 ICD Code: K85.90 - ACUTE PANCREATITIS WITHOUT NECROSIS OR INFECTION, UNSP Status: Acute Priority: High Current Visit: Yes Qualifiers: Pancreatitis type: unspecified pancreatitis type Acute pancreatitis complication: no infection or necrosis Qualified Code(s): K85.90 - Acute pancreatitis without necrosis or infection, unspecified - Patient Summary/Data Consults: Consultations 08/02/20 07:32 Consult to Parts Salesperson [CONS] Routine Labs Pending at D/C: None Recommended Follow-up Testing/Procedures: Follow-up with primary care provider within 7-10 days of discharge, sooner if needed. -Recommend repeat lipase, CBC, CMP, and magnesium at that visit Hospital Course: Patient admitted to the ICU as MedSurg overflow on the evening of 08/01/2020 with acute pancreatitis. Abdominal ultrasound was obtained in the ED and was a limited study. Dr. Braxton recommended repeat study with more prolonged fasting versus CT/MR to assess the gallbladder. Abdominal CT scan was obtained showing moderately severe acute pancreatitis. There is thickening of the distal stomach and duodenum likely related to the pancreatitis as opposed to primary gastroduodenitis. Fluid and a moderate large hiatal hernia sac which likely track superiorly from the pancreatic region. There was a subcentimeter low- density focus in the right kidney which statistically reflects a benign cyst and no follow-up was recommended. Lipase on admission was 22,435. WBC was elevated at 12.98. CRP was less than 0.2. He was made n.p.o. status and given his home medications in the ED. He was also started on IV fluids. His diet was advanced the next day with no abdominal pain. Triglycerides were obtained and were 77 which is within normal limits. He reports only a couple of alcoholic drinks a year. WBC did trend down to 10.2. Dietitian was consulted and did educate the patient on dietary concerns with pancreatitis. He does report having a history of similar symptoms in the past but has reportedly taken Tums and symptoms have resolved over the course of a few days. He does note they have never been this severe. MRCP is obtained Showing normal size biliary ducts and findings of pancreatitis. There is also minimal edema noted around the liver. Patient was advanced to regular diet today and his abdominal pain has resolved. He has had no nausea or vomiting. Recommend follow-up with primary care provider within 7 to 10 days of discharge, sooner if needed. Recommend repeat lipase, CBC, CMP, and magnesium at that appointment. Patient was advised to contact his primary care provider or return to the emergency room should symptoms return or worsen. No new medications. All home medications were continued. He was discharged home today. - Patient Instructions Diet: Usual Diet as Tolerated Activity: As Tolerated Driving: Do Not Drive (today ) Showering/Bathing: May Shower Notify Provider of: Fever, Increased Pain, Nausea and/or Vomiting Other/Special Instructions: Follow-up with primary care provider within 7-10 days of discharge, sooner if needed. Continue home medications. Should symtpoms return or worsen contact primary care provider or return to the Emergency Department. - Discharge Plan *PRESCRIPTION DRUG MONITORING PROGRAM REVIEWED*: Not Applicable *COPY OF PRESCRIPTION DRUG MONITORING REPORT IN PATIENT EHSAN: Not Applicable Home Medications: Home Meds Aspirin [Halfprin] 81 mg PO DAILY 08/01/20 [History] Clopidogrel Bisulfate [Clopidogrel] 75 mg PO DAILY 08/01/20 [History] Levothyroxine 75 mcg PO DAILY 08/01/20 [History] Losartan Potassium 50 mg PO DAILY 08/01/20 [History] Metoprolol Succinate [Toprol Xl] 25 mg PO DAILY 08/01/20 [History] Multivitamin 1 tab PO DAILY 08/01/20 [History] Pantoprazole Sodium [Protonix] 20 mg PO DAILY 08/01/20 [History] Rosuvastatin Calcium 40 mg PO DAILY 08/01/20 [History] Oxygen Therapy Mode: Room Air Patient Handouts: Acute Pancreatitis, [id number], Pancreatitis Eating Plan Forms: ED Department Discharge Referrals: Terell Gee MD [Primary Care Provider] - 08/09/20 10:10 am - Discharge Summary/Plan Comment DC Time >30 min.: Yes (45 mins ) - General Info Date of Service: 08/03/20 Admission Dx/Problem (Free Text: Admission Diagnosis/Problem Admission Diagnosis/Problem Pancreatitis Functional Status: Reports: Pain Controlled, Tolerating Diet, Ambulating, Urinating. Denies: New Symptoms - Review of Systems General: Reports: No Symptoms. Denies: Fever, Weakness, Fatigue, Malaise, Chills HEENT: Reports: No Symptoms. Denies: Headaches, Sore Throat Pulmonary: Reports: No Symptoms. Denies: Shortness of Breath, Pleuritic Chest Pain, Cough, Sputum, Wheezing Cardiovascular: Reports: No Symptoms. Denies: Chest Pain, Palpitations, Dyspnea on Exertion Gastrointestinal: Reports: No Symptoms. Denies: Abdominal Pain, Constipation, Diarrhea, Nausea, Vomiting Genitourinary: Reports: No Symptoms. Denies: Pain Musculoskeletal: Reports: No Symptoms Skin: Reports: No Symptoms. Denies: Cyanosis Neurological: Reports: No Symptoms. Denies: Confusion, Difficulty Walking, Weakness, Gait Disturbance Psychiatric: Reports: No Symptoms - Patient Data Vitals - Most Recent: Last Vital Signs Temp 98.0 F 08/03/20 10:00 Pulse 60 08/03/20 10:00 Resp 20 08/03/20 10:00 BP 135/74 08/03/20 10:00 Pulse Ox 98 08/03/20 10:00 Weight - Most Recent: 174 lb 3.2 oz I&O - Last 24 hours: Intake & Output 08/02/20 08/03/20 08/03/20 22:59 06:59 14:59 Intake Total 1562 674 60 Balance 1562 674 60 Lab Results - Last 24 hrs: Laboratory Results - last 24 hr 08/03/20 08/03/20 Range/Units 05:20 05:20 WBC 10.20 H (4.23-9.07) K/mm3 RBC 4.94 (4.63-6.08) M/mm3 Hgb 14.7 (13.7-17.5) gm/dl Hct 45.2 (40.1-51.0) % MCV 91.5 (79.0-92.2) fl MCH 29.8 (25.7-32.2) pg MCHC 32.5 (32.2-35.5) g/dl RDW Std Deviation 47.9 H (35.1-43.9) fL Plt Count 188 (163-337) K/mm3 MPV 10.1 (9.4-12.3) fl Neut % (Auto) 60.2 (34.0-67.9) % Lymph % (Auto) 21.4 L (21.8-53.1) % [place] % (Auto) 14.3 H (5.3-12.2) % Eos % (Auto) 3.4 (0.8-7.0) Baso % (Auto) 0.5 (0.1-1.2) % Neut # (Auto) 6.14 H (1.78-5.38) K/mm3 Lymph # (Auto) 2.18 (1.32-3.57) K/mm3 [place] # (Auto) 1.46 H (0.30-0.82) K/mm3 Eos # (Auto) 0.35 (0.04-0.54) K/mm3 Baso # (Auto) 0.05 (0.01-0.08) K/mm3 Sodium 142 (136-145) mEq/L Potassium 3.9 (3.5-5.1) mEq/L Chloride 107 (98-107) mEq/L Carbon Dioxide 23 (21-32) mEq/L Anion Gap 15.9 H (5-15) BUN 10 (7-18) mg/dL Creatinine 0.8 (0.7-1.3) mg/dL Est Cr Clr Drug Dosing 64.75 mL/min Estimated GFR (MDRD) > 60 (>60) mL/min BUN/Creatinine Ratio 12.5 L (14-18) Glucose 111 (83-115) mg/dL Calcium 8.5 (8.5-10.1) mg/dL Magnesium 1.8 (1.8-2.4) mg/dl Med Orders - Current: Current Medications Acetaminophen (Tylenol) 650 mg PO Q4H PRN PRN Reason: Pain Aspirin (Halfprin) 81 mg PO DAILY@1800 [facility] Last Admin: 08/02/20 17:06 Dose: 81 mg Documented by: Clopidogrel Bisulfate (Plavix) 75 mg PO DAILY@1800 [facility] Last Admin: 08/02/20 17:07 Dose: 75 mg Documented by: Docusate Sodium (Colace) 100 mg PO BID PRN PRN Reason: Constipation Hydromorphone HCl (Dilaudid) 0.5 mg IVPUSH Q2H PRN PRN Reason: Abdominal Pain Levothyroxine Sodium (Levothyroxine) 75 mcg PO DAILY@1800 [facility] Last Admin: 08/02/20 17:07 Dose: 75 mcg Documented by: Losartan Potassium (Cozaar) 50 mg PO DAILY@1800 [facility] Last Admin: 08/02/20 17:08 Dose: 50 mg Documented by: Metoclopramide HCl (Reglan) 7.5 mg IVPUSH Q6H PRN PRN Reason: Nausea Metoprolol Succinate (Toprol Xl) 25 mg PO DAILY@1800 [facility] Last Admin: 08/02/20 17:07 Dose: 25 mg Documented by: Ondansetron HCl (Zofran) 4 mg IV Q6H PRN PRN Reason: Nausea/Vomiting Sodium Chloride (Saline Flush) 10 ml FLUSH ASDIRECTED PRN PRN Reason: Keep Vein Open Last Admin: 08/01/20 16:55 Dose: 10 ml Documented by: Vit A/Vit C/Vit E/Selen/Cu/Zn/Lutei (Icaps Mv) 1 tab PO DAILY@1800 [facility] Last Admin: 08/02/20 17:06 Dose: 1 tab Documented by: Discontinued Medications Clopidogrel Bisulfate (Plavix) 75 mg PO ONETIME ONE Stop: 08/01/20 20:42 Last Admin: 08/01/20 21:18 Dose: 75 mg Documented by: Potassium Chloride/Dextrose/Sod Cl (D5 Ns With 20 Meq Kcl) 1,000 mls [facility] Admin: 08/03/20 04:03 Dose: 75 mls/hr Documented by: Iopamidol (Isovue-300 (61%)) 100 ml IVPUSH ONETIME ONE Stop: 08/01/20 19:44 Last Admin: 08/01/20 19:45 Dose: 100 ml Documented by: Levothyroxine Sodium (Levothyroxine) 75 mcg PO ONETIME ONE Stop: 08/01/20 20:43 Last Admin: 08/01/20 21:18 Dose: 75 mcg Documented by: Levothyroxine Sodium (Levothyroxine) 75 mcg PO ACBREAKFAST DARLENE Last Admin: 08/02/20 08:58 Dose: Not Given Documented by: Losartan Potassium (Cozaar) 50 mg PO ONETIME ONE Stop: 08/01/20 20:42 Last Admin: 08/01/20 21:16 Dose: 50 mg Documented by: Losartan Potassium (Cozaar) 50 mg PO DAILY [facility] Metoprolol Succinate (Toprol Xl) 25 mg PO ONETIME ONE Stop: 08/01/20 20:42 Last Admin: 08/01/20 21:18 Dose: 25 mg Documented by: Metoprolol Succinate (Toprol Xl) 25 mg PO DAILY [facility] Sodium Chloride (Saline Flush) 10 ml FLUSH BOLUS [facility] Last Admin: 08/01/20 19:45 Dose: 10 ml Documented by: Vit A/Vit C/Vit E/Selen/Cu/Zn/Lutei (Icaps Mv) 1 tab PO DAILY [facility] - Exam Quality Assessment: Reports: DVT Prophylaxis General: Reports: Alert, Oriented, Cooperative, No Acute Distress HEENT: Reports: Pupils Equal, Pupils Reactive, Mucous Membr. Moist/[place]ck: Reports: Supple, Trachea Midline Lungs: Reports: Clear to Auscultation, Normal Respiratory Effort Cardiovascular: Reports: Regular Rate, Regular Rhythm GI/Abdominal Exam: Normal Bowel Sounds, Soft, Non-Tender, No Distention (Male) Exam: Deferred Rectal (Males) Exam: Deferred Back Exam: Reports: Normal Inspection, Full Range of Motion Extremities: Normal Inspection, Normal Range of Motion, Non-Tender, No Pedal Edema Skin: Reports: Warm, Dry, Intact Neurological: Reports: No New Focal Deficit Psy/Mental Status: Reports: Alert, Normal Affect, Normal Mood
== END 2020-08-03 14:11 | disposition home or self-care (01) | DRG 440 ==
LOC: JD.ED 16:21 → JD.ICU 21:57
PROVIDERS: ADMIT Internal Medicine; ATTEND Internal Medicine
DX: K85.90 Acute pancreatitis without necrosis or infection, unspecified (principal); I25.10 Atherosclerotic heart disease of native coronary artery without angina pectoris; E78.5 Hyperlipidemia, unspecified; I10 Essential (primary) hypertension; K21.9 Gastro-esophageal reflux disease without esophagitis; M19.90 Unspecified osteoarthritis, unspecified site; E03.9 Hypothyroidism, unspecified; Z20.822 Contact with and (suspected) exposure to COVID-19; K29.90 Gastroduodenitis, unspecified, without bleeding; K44.9 Diaphragmatic hernia without obstruction or gangrene; H54.7 Unspecified visual loss; Z79.02 Long term (current) use of antithrombotics/antiplatelets; E78.00 Pure hypercholesterolemia, unspecified; I25.2 Old myocardial infarction; Z86.19 Personal history of other infectious and parasitic diseases; Z79.82 Long term (current) use of aspirin; Z79.890 Hormone replacement therapy; Z98.49 Cataract extraction status, unspecified eye; Z95.5 Presence of coronary angioplasty implant and graft; Z79.899 Other long term (current) drug therapy
CPT/HCPCS: 36415; 71045; 71045-26; 74177; 74177-26; 74181; 74181-26; 76705; 76705-26; 80048; 80053; 81001; 82550; 82553; 82977; 83690; 83735; 84478; 84484; 85025; 86140; 93005; 93010; 99284; 99285-25; A9270-GY; J3480; Q9967; U0002

== ENCOUNTER 2022-02-12 13:17 | Emergency (ER) | payer MEDICARE, OTHER ==
[2022-02-12] MEDS ORDERED: Sodium Chloride 0.9% 10 ML Syringe FLUSH PRN (14:50)
[2022-02-12] MEDS ORDERED: HYDROmorphone 0.5 MG/0.5 ML Syringe IVPUSH ONE (14:52)
[2022-02-12] MEDS ORDERED: Ketorolac 15 MG/ML SDV IVPUSH ONE (15:20)
== END 2022-02-12 17:27 | disposition home or self-care (01) ==
LOC: JD.ED 13:17
DX: M51.16 Intervertebral disc disorders with radiculopathy, lumbar region (principal); E03.9 Hypothyroidism, unspecified; I25.10 Atherosclerotic heart disease of native coronary artery without angina pectoris; E78.00 Pure hypercholesterolemia, unspecified; Z79.82 Long term (current) use of aspirin; Z79.02 Long term (current) use of antithrombotics/antiplatelets; Z79.899 Other long term (current) drug therapy; Z95.5 Presence of coronary angioplasty implant and graft
CPT/HCPCS: 36415; 72148; 73502; 80053; 82565; 85025; 96374; 96375; 99283; J1170; J1885; J3490; 99284

== ENCOUNTER 2025-06-11 11:28 | Emergency (ER) | payer MEDICARE, OTHER ==
[2025-06-11] MEDS ORDERED: Sodium Chloride 0.9% 10 ML Syringe FLUSH PRN (12:07)
[2025-06-11 12:51] LABS: BASOPHILS ABSOLUTE AUTO 0.0 K/mm3 (0.0-0.2); BASOPHILS PERCENT AUTO 0.3 % (0.0-1.0); EOSINOPHILS ABSOLUTE AUTO 0.1 K/mm3 (0.0-0.4); EOSINOPHILS PERCENT AUTO 0.4 % (0.0-6.0); IMMATURE GRAN ABSOLUTE AUTO 0.04 K/mm3 (0.00-0.05); IMMATURE GRAN PERCENT AUTO 0.3 % (0.0-0.4); LYMPHOCYTES ABSOLUTE AUTO 2.1 K/mm3 (1.0-4.8); LYMPHOCYTES PERCENT AUTO 15.3 % (24.0-44.0); MEAN PLATELET VOLUME 10.7 fl (9.4-12.4); MONOCYTES ABSOLUTE AUTO 1.8 K/mm3 (0.0-0.8); MONOCYTES PERCENT AUTO 12.8 % (0.0-8.0); NEUTROPHILS ABSOLUTE AUTO 9.9 K/mm3 (1.8-7.7); NEUTROPHILS PERCENT AUTO 70.9 % (41.0-71.0); NRBC ABSOLUTE 0.00 (0.00-0.02); NRBC PERCENT 0.0 % (0.0-0.2); PLATELET COUNT,PLT 175 K/mm3 (150-400); RED BLOOD CELL COUNT 5.31 M/mm3 (4.52-5.90); WHITE BLOOD CELL COUNT,WBC 13.96 K/mm3 (3.9-11.3)
[2025-06-11] MEDS: Alum Hydrox/Mag Hydrox/Simeth 30 ML, Lidocaine 2% 15 ML PO ONE (13:03)
[2025-06-11 13:15] LABS: A/G RATIO 0.7 (1-2); ALANINE AMINOTRANSFERASE,ALT 17.0 U/L (16-63); ASPARTATE AMNIOTRANSFERASE,AST 15.0 U/L (15-37); BILIRUBIN TOTAL 1.5 mg/dL (0.2-1.0); BLOOD UREA NITROGEN,BUN 16.0 mg/dL (7-18); CARBON DIOXIDE,CO2 30.0 mEq/L (21-32); CHLORIDE,CL 100.0 mEq/L (98-107); CREATININE 1.0 mg/dL (0.7-1.3); EST CRCL DRUG DOSING (CG) 47.69 mL/min; ESTIMATED GFR 75.0 mL/min (>60); GLUCOSE RANDOM 115.0 mg/dL (70-99); POTASSIUM,K 3.9 mEq/L (3.5-5.1); PROTEIN TOTAL,TP 6.8 g/dl (6.4-8.2); SODIUM,NA 137.0 mEq/L (136-145)
[2025-06-11] MEDS: Sodium Chloride 0.9% 10 ML Syringe FLUSH ONE (14:04)
[2025-06-11] MEDS: Iopamidol 612 MG/ML 100 ML Bottle IVPUSH ONE (14:04)
== END 2025-06-11 16:20 | disposition home or self-care (01) ==
LOC: JD.ED 11:28
DX: K85.90 Acute pancreatitis without necrosis or infection, unspecified (principal); E03.9 Hypothyroidism, unspecified; M19.90 Unspecified osteoarthritis, unspecified site; Z95.5 Presence of coronary angioplasty implant and graft; Z79.82 Long term (current) use of aspirin; Z79.890 Hormone replacement therapy; Z79.899 Other long term (current) drug therapy
CPT/HCPCS: 36415; 74019; 74177; 80053; 83690; 85025; 86140; 99284; A9270; Q9967